=== PATIENT | male | born 2000 | race African-American/Black ===

== ENCOUNTER 2024-03-27 21:50 | Emergency (ER) | payer OTHER, SELFPAY ==
[2024-03-27] MEDS ORDERED: HYDRALAZINE HCL 20 MG/ML VIAL ONE (23:49)
[2024-03-27] MEDS ORDERED: NA CHLORIDE 0.9% 1,000 ML ONE (23:50)
[2024-03-28 00:01] LABS: Absolute Basophils 0.1 K/uL (0-0.5); Absolute Lymphocytes (CBC) 1.1 K/uL (0.7-4.9); Absolute Monocytes 0.7 K/uL (0.1-1.3); Basophils % 0.5 % (0-1.3); Eosinophils % 0.2 % (0-4.4); Hematocrit 40.9 % (39.6-49.0); Hemoglobin 13.8 g/dL (13.6-17.9); Lymphocytes % 11.5 % (15.3-44.8); MCHC 33.6 g/dL (32.0-36.0); MCV 92.2 fL (80-100); MPV 9.5 fL (7.6-11.3); Monocytes % 7.1 % (3.3-12.3); Neutrophils % 80.7 % (41.7-73.7); Platelets 229 thou/uL (152-406); RBC Red Blood Cell Count 4.44 M/uL (4.33-5.43); Red Cell Distribution Width 12.5 % (12.1-15.2)
[2024-03-28 00:04] LABS: PT Prothrombin Time 14.3 SECONDS (9.4-12.5); Protime INR 1.37
[2024-03-28 00:14] LABS: Albumin 4.1 g/dL (3.4-5.0); Albumin/Globulin Ratio 1.1 (1.1-1.8); Anion Gap 9.6 mEq/L (5.0-15.0); Bilirubin Direct 0.3 mg/dL (0-0.2); Bilirubin Indirect, Calculated 1.3 mg/dL (0.2-0.8); Bilirubin Total 1.6 mg/dL (0.2-1.0); Globulin 3.6 g/dL (2.3-3.5); Magnesium 2.3 mg/dL (1.6-2.4); Potassium 3.6 mEq/L (3.5-5.1); Protein, Total 7.7 g/dL (6.4-8.2); Troponin High Sensitivity 4.9 pg/mL (<58.9)
[2024-03-28] MEDS ORDERED: AMLODIPINE 5 MG TAB ONE (00:56)
--- NOTE | 2024-03-28 00:57 | RAD REPORT ---
PROCEDURE: CT Head Without Intravenous Contrast CLINICAL INDICATION: The patient is 23 years old and is Male; Dizziness. TECHNIQUE: Axial computed tomography images of the head/brain without intravenous contrast. Sagittal and coron al reformatted images were created and reviewed. This CT exam was performed using one or more of the following dose reduction techniques: automated exposure control, adjustment of the mA and/or kV according to patient size, and/or use of iterative reconstruction technique. COMPARISON: None. FINDINGS: BRAIN: No extra-axial fluid collection. No intracranial hemorrhage. No transtentorial herniation. N o focal lloyd-white matter differentiation abnormality. MIDLINE SHIFT: None. VENTRICLES: Unremarkable No ventriculomegaly. BONES/JOINTS: No fracture of the calvarium or visualized facial bones. SOFT TISSUES: Unremarkable SINUSES: No masses, bony erosion or evidence of acute sinusitis. MASTOID AIR CELLS: Unremarkable as visualized. No mastoid effusion. IMPRESSION: No acute intracranial abnormality. Electronically signed by: Manohar Preciado MD 03/28/2024 12:53 AM [facility] Due to temporary technical issues with the PACS/[employer] reporting system, reports are being jono d by the in-house radiologist without review as a courtesy to ensure prompt reporting the interpreting radiologist is fully responsible for the content of the report. Transcribed Date/Time: 03/28/2024 12:57 AM
--- NOTE | 2024-03-28 01:26 | ER ---
Nurse's Notes [facility] Name: Darlene Verma Age: 23 yrs Sex: Male : 2000 Arrival Date: 03/27/2024 Time: 21:50 Bed 4 Private MD: Diagnosis: Hypertensive heart disease without heart failure;Dizziness and giddiness Presentation: 03/27 22:03 Chief complaint: Patient states: he had a blood pressure of 170/110 today. patient ap3 states he was also dizzy today, and that he "didn't feel good". Coronavirus screen: At this time, the client does not indicate any symptoms associated with coronavirus-19. Ebola Screen: No symptoms or risks identified at this time. Initial Sepsis Screen: Does the patient meet any 2 criteria? No. Patient's initial sepsis screen is negative. Does the patient have a suspected source of infection? No. Patient's initial sepsis screen is negative. Risk Assessment: Do you want to hurt yourself or someone else? Patient reports no desire to harm self or others. Onset of symptoms was March 27, 2024. 22:03 Method Of Arrival: Ambulatory ap3 22:03 Acuity: YESSI 3 ap3 Triage Assessment: 22:06 General: Appears in no apparent distress. Behavior is calm, cooperative, appropriate ap3 for age. Pain: Denies pain. Neuro: Level of Consciousness is awake, alert, obeys commands, Oriented to person, place, time, situation, Appropriate for age Speech is normal, Reports dizziness. Cardiovascular: Patient's skin is warm and dry. Respiratory: Airway is patent Respiratory effort is even, unlabored, Respiratory pattern is regular, symmetrical. Historical: - Allergies: 22:05 No Known Allergies; ap3 - Home Meds: 22:05 None [Active]; ap3 - PMHx: 22:05 None; ap3 - Immunization history:: Client reports having NOT received the Covid vaccine. - Infectious Disease History:: Denies. - Social history:: Smoking status: Patient reports the use of cigarette tobacco products, smokes one pack cigarettes per day. Patient uses street drugs, marijuana. Screenin:06 [facility] ED Fall Risk Assessment (Adult) History of falling in the last 3 months, ap3 including since admission No falls in past 3 months (0 pts) Confusion or Disorientation No (0 pts) Intoxicated or Sedated No (0 pts) Impaired Gait No (0 pts) Mobility Assist Device Used No (0 pt) Altered Elimination No (0 pt) Score/Fall Risk Level 0 - 2 = Low Risk Oriented to surroundings, Maintained a safe environment, Educated pt \\T\\ family on fall prevention, incl call for assistance when getting out of bed, Assessed \\T\\ reinforced patient's understanding of fall precautions, Hourly rounding (assess needs \\T\\ fall precautionary measures) done, Used ambulatory aids as needed (educated on \\T\\ assisted with). Abuse screen: Denies threats or abuse. Nutritional screening: No deficits noted. Tuberculosis screening: No symptoms or risk factors identified. Assessment: 23:57 General: Appears in no apparent distress. comfortable, Behavior is calm, cooperative. al5 Pain: Denies pain. Neuro: Level of Consciousness is awake, alert, obeys commands, Oriented to person, place, time, situation. Cardiovascular: Reports high blood pressure Capillary refill < 3 seconds Patient's skin is warm and dry. Respiratory: Airway is patent Respiratory effort is even, unlabored, Respiratory pattern is regular, symmetrical. GI: No signs and/or symptoms were reported involving the gastrointestinal system. Abdomen is flat, non-distended. : No signs and/or symptoms were reported regarding the genitourinary system. EENT: No signs and/or symptoms were reported regarding the EENT system. Derm: Skin is intact, is healthy with good turgor, Skin is pink, warm \\T\\ dry. normal. Musculoskeletal: No signs and/or symptoms reported regarding the musculoskeletal system. 03/28 01:02 Reassessment: Patient appears in no apparent distress at this time. No changes from al5 previously documented assessment. Patient and/or family updated on plan of care and expected duration. Pain level reassessed. Patient is alert, oriented x 3, equal unlabored respirations, skin warm/dry/pink. Vital Signs: 03/27 22:03 BP 166 / 98; Pulse 60; Resp 18; Temp 98.2; Pulse Ox 100% ; Weight 63.5 kg; Height 5 ft. ap3 9 in. ; 23:26 BP 157 / 102; Pulse 58; Resp 16; Pulse Ox 100% on R/A; al5 23:30 BP 165 / 101; Pulse 60; Resp 15; Pulse Ox 100% on R/A; al5 03/28 00:00 BP 149 / 103; Pulse 59; Resp 15; Pulse Ox 100% on R/A; ap3 00:30 BP 148 / 99; Pulse 64; Resp 15; Pulse Ox 100% on R/A; ap3 01:00 BP 140 / 97; Pulse 62; Resp 18; Pulse Ox 100% on R/A; al5 01:56 BP 142 / 99; Pulse 64; Resp 19; Pulse Ox 100% ; ay 03/27 22:03 Body Mass Index 20.67 (63.50 kg, 175.26 cm) ap3 ED Course: 03/27 21:55 Patient arrived in ED. gm2 22:00 Channing Plasencia PA is PHCP. cp 22:00 Jose Miguel Rodriguez MD is Attending Physician. cp 22:05 Triage completed. ap3 22:06 Arm band placed on right wrist. ap3 22:41 XRAY Chest (1 view) In Process Unspecified. EDMS 23:28 Harriet Esqueda, LIZBET is Primary Nurse. al5 23:58 Patient has correct armband on for positive identification. Placed in gown. Bed in low al5 position. Call light in reach. Side rails up X 1. Provided Education on: plan of care, medications. 23:58 No provider procedures requiring assistance completed. Inserted saline lock: 20 gauge al5 in right antecubital area, using aseptic technique. Blood collected. Flushed with 10 mL NS. 03/28 00:12 CT Head Brain wo Cont In Process Unspecified. EDMS 01:55 IV discontinued, intact, bleeding controlled, No redness/swelling at site. Pressure ay dressing applied. Administered Medications: 03/27 23:57 Drug: NS 0.9% IV 1000 ml IV at 1 bolus Per protocol; to be given as a bolus over 60 al5 minutes Route: IV; Rate: 1 bolus; Site: right antecubital; 03/28 01:01 Follow up: Response: No adverse reaction; IV Status: Completed infusion; IV Intake: al5 1000ml 01:59 Follow up: Response: No adverse reaction ay 03/27 23:57 Drug: hydrALAZINE IVP 10 mg IVP once Route: IVP; Site: right antecubital; al5 03/28 01:01 Follow up: Response: No adverse reaction; Blood pressure is lowered al5 01:59 Follow up: Response: No adverse reaction ay 00:50 Not Given (Physician Discretion): [id number] mg PO once cp 01:01 Drug: amLODIPine PO 5 mg PO once Route: PO; al5 01:59 Follow up: Response: No adverse reaction ay Medication: 03/27 23:58 VIS not applicable for this client. al5 Intake: 03/28 01:01 IV: 1000ml; Total: 1000ml. al5 Outcome: 01:25 Discharge ordered by . cp 01:55 Discharged to home ambulatory, ay 01:55 Condition: stable 01:55 Discharge instructions given to patient, Instructed on discharge instructions, follow up and referral plans. medication usage, Demonstrated understanding of instructions, follow-up care, medications, Prescriptions given X 1, 01:57 Patient left the ED. ay Signatures: Dispatcher [employer] EDMS Channing Plasencia PA PA cp Prokisch, Amanda, LIZBET RN Carolee Pino 2 Harriet Esqueda RN RN al5 Rc Garvin RN RN ay
--- NOTE | 2024-03-28 01:26 | EDPHYS ---
Physician Documentation [facility] Name: Darlene Verma Age: 23 yrs Sex: Male : 2000 Arrival Date: 03/27/2024 Time: 21:50 Bed 4 Private MD: ED Physician Jose Miguel Rodriguez HPI: 03/27 22:30 This 23 yrs old Black Male presents to ER via Ambulatory with complaints of High Blood cp Pressure, Dizziness. 22:30 The patient has elevated blood pressure and discovered this at home, with a home device.cp 22:30 Onset: The symptoms/episode began/occurred today. Associated signs and symptoms: cp Pertinent positives: dizziness, Pertinent negatives: chest pain, headache, vomiting, weakness. 22:30 Severity of symptoms: At its worst the blood pressure was 170 mm Hg. cp Historical: - Allergies: 22:05 No Known Allergies; ap3 - Home Meds: 22:05 None [Active]; ap3 - PMHx: 22:05 None; ap3 - Immunization history:: Client reports having NOT received the Covid vaccine. - Infectious Disease History:: Denies. - Social history:: Smoking status: Patient reports the use of cigarette tobacco products, smokes one pack cigarettes per day. Patient uses street drugs, marijuana. ROS: 22:35 Constitutional: Negative for body aches, chills, fever, poor PO intake, cp 22:35 Cardiovascular: Negative for chest pain, edema, palpitations, cp 22:35 Respiratory: Negative for cough, shortness of breath, wheezing, 22:35 Abdomen/GI: Negative for abdominal pain, vomiting, diarrhea, constipation, 22:35 Neuro: Positive for dizziness, Negative for altered mental status, numbness, syncope, weakness, 22:35 Eyes: Negative for injury, pain, redness, and discharge, cp 22:35 ENT: Negative for drainage from ear(s), ear pain, sore throat, difficulty swallowing, difficulty handling secretions, 22:35 All other systems are negative, Exam: 22:40 Constitutional: The patient appears in no acute distress, alert, awake, cp non-diaphoretic, non-toxic, well developed, well nourished, 22:40 Head/Face: Normocephalic, atraumatic. cp 22:40 Eyes: Periorbital structures: appear normal, Pupils: equal, round, and reactive to light and accomodation, Extraocular movements: intact throughout, Conjunctiva: normal, no exudate, no injection, Sclera: no appreciated abnormality, Lids and lashes: appear normal, bilaterally, 22:40 ENT: External ear(s): are unremarkable, Nose: is normal, Mouth: Lips: moist, Oral mucosa: moist, Posterior pharynx: Airway: no evidence of obstruction, patent, 22:40 Neck: ROM/movement: is normal, is supple, without pain, no range of motions limitations, 22:40 Chest/axilla: Inspection: normal, 22:40 Cardiovascular: Rate: normal, Rhythm: regular, Edema: is not appreciated, JVD: is not appreciated, 22:40 Respiratory: the patient does not display signs of respiratory distress, Respirations: normal, no use of accessory muscles, no retractions, labored breathing, is not present, Breath sounds: are clear throughout, no decreased breath sounds, no stridor, no wheezing, 22:40 Abdomen/GI: Inspection: abdomen appears normal, Palpation: abdomen is soft and non-tender, in all quadrants, 22:40 Neuro: Orientation: to person, place \T\ time. Mentation: is normal, Cerebellar function: is grossly normal, Motor: moves all fours, strength is normal, Sensation: is normal, 23:37 ECG was reviewed by the Attending Physician. cp Vital Signs: 22:03 BP 166 / 98; Pulse 60; Resp 18; Temp 98.2; Pulse Ox 100% ; Weight 63.5 kg; Height 5 ft. ap3 9 in. ; 23:26 BP 157 / 102; Pulse 58; Resp 16; Pulse Ox 100% on R/A; al5 23:30 BP 165 / 101; Pulse 60; Resp 15; Pulse Ox 100% on R/A; al5 03/28 00:00 BP 149 / 103; Pulse 59; Resp 15; Pulse Ox 100% on R/A; ap3 00:30 BP 148 / 99; Pulse 64; Resp 15; Pulse Ox 100% on R/A; ap3 01:00 BP 140 / 97; Pulse 62; Resp 18; Pulse Ox 100% on R/A; al5 01:56 BP 142 / 99; Pulse 64; Resp 19; Pulse Ox 100% ; ay 03/27 22:03 Body Mass Index 20.67 (63.50 kg, 175.26 cm) ap3 MDM: 03/27 22:10 Medical Screening Exam initiated 03/28 01:16 I considered the following discharge prescriptions or medication management in the emergency department Medications were administered in the Emergency Department. See : Differential diagnosis: hypertensive crisis, Malignant HTN, CVA, intracerebral cp hemorrhage. Data reviewed: vital signs, nurses notes, lab test result(s), EKG, radiologic studies, CT scan, and as a result, I will discharge patient. Independent interpretation of the following test(s) in the Emergency Department EKG: See my EKG interpretation above. Counseling: I had a detailed discussion with the patient and/or guardian regarding the historical points, exam findings, and any diagnostic results supporting the discharge/admit diagnosis, the presence of at least one elevated blood pressure reading (>120/80) during this emergency department visit, lab results, radiology results, the need for outpatient follow up, a family practitioner, to return to the emergency department if symptoms worsen or persist or if there are any questions or concerns that arise at home. Response to treatment: the patient's symptoms have markedly improved after treatment, and as a result, I will discharge patient. 03/27 21: Order name: Basic Metabolic Panel; Complete Time: 00:15 03/28 00:16 Interpretation: Normal except: CL 109; BUN 5. 03/27 Order name: CBC with Diff; Complete Time: 00:15 03/28 00:16 Interpretation: Normal except: POWER% 80.7; LYM% 11.5. 03/27 Order name: LFT's; Complete Time: 00:15 03/28 00:16 Interpretation: Normal except: ALT 15; BILIT 1.6; BILID 0.3; IBILI, CALC 1.3; GLOB 3.6. 03/27 21: Order name: Magnesium; Complete Time: 00:15 03/27 21: Order name: PT-INR; Complete Time: 00:15 03/27 21:28 Order name: Troponin HS; Complete Time: 00:15 03/28 00:16 Interpretation: Reviewed. 03/27 21:28 Order name: XRAY Chest (1 view) 03/27 23:38 Order name: CT Head Brain wo Cont cp 03/28 01:14 Interpretation: Report reviewed. cp 03/27 22:28 Order name: EKG; Complete Time: 22:29 cp 03/27 22:28 Order name: Cardiac monitoring; Complete Time: 23:47 cp 03/27 22:28 Order name: EKG - Nurse/Tech; Complete Time: 23:47 cp 03/27 22:28 Order name: IV Saline Lock; Complete Time: 23:47 cp 03/27 22:28 Order name: Labs collected and sent; Complete Time: 23:47 cp 03/27 22:28 Order name: O2 Per Protocol; Complete Time: 23:48 cp 03/27 22:28 Order name: O2 Sat Monitoring; Complete Time: 23:48 cp EC/20 23:37 Rate is 62 beats/min. Rhythm is regular. PA interval is normal. QRS interval is normal. cp QT interval is normal. T waves are Inverted in lead aVR. Interpreted by me. Reviewed by me. Administered Medications: 23:57 Drug: NS 0.9% IV 1000 ml IV at 1 bolus Per protocol; to be given as a bolus over 60 al5 minutes Route: IV; Rate: 1 bolus; Site: right antecubital; 03/28 01:01 Follow up: Response: No adverse reaction; IV Status: Completed infusion; IV Intake: al5 1000ml 01:59 Follow up: Response: No adverse reaction ay 03/27 23:57 Drug: hydrALAZINE IVP 10 mg IVP once Route: IVP; Site: right antecubital; al5 03/28 01:01 Follow up: Response: No adverse reaction; Blood pressure is lowered al5 01:59 Follow up: Response: No adverse reaction ay 00:50 Not Given (Physician Discretion): [id number] mg PO once cp 01:01 Drug: amLODIPine PO 5 mg PO once Route: PO; al5 01:59 Follow up: Response: No adverse reaction ay Disposition: 20:31 Co-signature as Attending Physician, Jose Miguel Rodriguez MD I agree with the assessment sp4 and plan of care. I reviewed the patient's care provided by the Advanced Practice Provider and agree with the diagnosis and treatment plan. Disposition Summary: 03/28/24 01:25 Discharge Ordered Notes: Location: Home cp Problem: new cp Symptoms: have improved cp Condition: Stable cp Diagnosis - Hypertensive heart disease without heart failure cp - Dizziness and giddiness cp Followup: cp - With: Private Physician - When: 5 - 6 days - Reason: Recheck today's complaints Discharge Instructions: - Discharge Summary Sheet cp - Dizziness cp - Hypertension, Adult cp - Form - Blood Pressure Record Sheet cp - How to Take Your Blood Pressure cp Forms: - Work release form em1 - Medication Reconciliation Form cp - Antibiotic Education cp - Prescription Opioid Use cp - Patient Portal Instructions cp - Leadership Thank You Letter cp Prescriptions: - amlodipine 5 mg Oral tablet - take 1 tablet ORAL route daily; 30 tablet; Refills: 0, Product Selection cp Permitted Signatures: Dispatcher [employer] EDMS Channing Plasencia PA PA cp Harriet Nunes RN RN ap3 Jose Miguel Rodriguez MD MD sp4 Harriet Esqueda RN RN al5 Rc Garvin RN ay Corrections: (The following items were deleted from the chart) 03/29 00:03/28 20:32 Differential diagnosis: hypertensive crisis, Malignant HTN, sp4 cp 03/29 00:47 03/28 20:32 Data reviewed: vital signs, nurses notes, lab test result(s), sp4 cp 03/29 00:03/28 20:32 Consideration of Admission/Observation Escalation of care including cp admission/observation considered. sp4
--- NOTE | 2024-03-28 05:44 | RAD REPORT ---
EXAM: XR Chest, 1 View CLINICAL HISTORY: The patient is 23 years old and is Male; elevated blood pressure TECHNIQUE: Frontal view of the chest. COMPARISON: No relevant prior studies available. FINDINGS: Lungs: Unremarkable. No consolidation. Pleural space: Unremarkable. No pneumothorax. Heart: Unremarkable. Mediastinum: Unremarkable. Normal mediastinal contour. Bones/joints: No acute findings. IMPRESSION: No acute findings in the chest. Electronically signed by: Rashad San MD 03/27/2024 11:17 PM [facility] 8 Due to temporary technical issues with the PACS/[employer] reporting system, reports are being jono d by the in-house radiologist without review as a courtesy to ensure prompt reporting the interpreting radiologist is fully responsible for the content of the report. Transcribed Date/Time: 03/28/2024 5:44 AM
[2024-03-28 23:30] VITALS: TEMP 98.2; O2SAT 100
[2024-03-28 23:55] VITALS: BP 142/99
--- NOTE | 2024-03-31 12:14 | EKG ---
Test Date: 2024-03-27 Test Time: 23:33:43 Esl Professor: RONALD MEASUREMENT RESULTS: Intervals: Rate: 62 [place]: 146 QRSD: 80 QT: 416 QTc: 422 [place]: P: 82 [place]: 146 QRS: 79 T: 58 INTERPRETIVE STATEMENTS: Normal sinus rhythm Normal ECG No previous ECG available for comparison Electronically Signed On 03-31-24 12:11:25 OFFICE AIDE by Ruddy Bustillos
== END 2024-03-28 01:57 | disposition home or self-care (01) ==
LOC: ER 21:50
DX: I11.9 Hypertensive heart disease without heart failure (principal)
CPT/HCPCS: 36415; 70450; 71045; 80048; 80076; 83735; 84484; 85025; 85610; 93005; 96361; 96374; 99284; J0360; J7030